=== PATIENT | male | born 1995 | race Caucasian/White ===

== ENCOUNTER 2018-01-01 11:37 | Emergency (ER) | payer OTHER, SELFPAY ==
[2018-01-01 11:53] VITALS: BP 104/74; PULSE 90; RESP 13; TEMP 36.6; O2SAT 99
--- NOTE | 2018-01-01 12:09 | ED.BACK ---
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 He felt pain when he bent over, which briefly radiated into his legs. He states the pain was so severe that time he was unable to walk and he had to be helped to get to another local ED where he was seen. He states that he got an injection and some medications and when he left he could walk slowly. He was prescribed Mobic, and he believes a muscle relaxant and [place]. He states that today, he still has pain and reduced range of motion, but is able to walk. He denies any radiation of the pain, which centers in his low back and more on the right side. He denies any weakness or paresthesia in the extremities. He denies any new fever. He denies any bowel or bladder changes or any other new complaints. He states that he mainly comes in for reassurance because he was not examined. 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 He lifts frequently. Review of Systems <Miladis Cash PA-C - Last Filed: 01/01/18 19:04> Review of Systems All systems reviewed & are unremarkable except as noted in HPI and below Exam <Miladis Cash PA-C - Last Filed: 01/01/18 19:04> Narrative Exam Narrative: GENERAL APPEARANCE: Patient sitting comfortably, in no distress, sits with weight shifted to left. PULMONARY: Lungs clear to auscultation bilaterally CV: Regular rhythm regular without murmur, normal S1 and S2, no S3 or S4 MUSCULOSKELETAL: Minimal point tenderness over the lumbar spine and paraspinal musculature, more tender over the right mid to inferior lumbar musculature at the MSL and at the SI joint. He is able to flex the spine to about 45? and fully extend but with some tenderness. He has reduced rotation and lateral bend secondary to tenderness. Lower extremity strength 5/5 bilateral hip flexors, knee extensors, foot plantar flexion. Negative modified straight leg raise NEUROLOGIC: Bilateral patellar and Achilles DTRs 2+. Lower extremity sensation grossly intact Initial Vital Signs Initial Vital Signs: Vital Signs Temperature 97.8 F 01/01/18 11:53 Pulse Rate 90 01/01/18 11:53 Respiratory Rate 13 01/01/18 11:53 Blood Pressure 104/74 01/01/18 11:53 Pulse Oximetry 99 01/01/18 11:53 <Arya Mitchell MD - Last Filed: 02/03/18 06:44> Initial Vital Signs Initial Vital Signs: Vital Signs Temperature 97.8 F 01/01/18 11:53 Pulse Rate 90 01/01/18 11:53 Respiratory Rate 13 01/01/18 11:53 Blood Pressure 104/74 01/01/18 11:53 Pulse Oximetry 99 01/01/18 11:53 Course <Miladis Cash PA-C - Last Filed: 01/01/18 19:04> Vital Signs - 8 hr 01/01/18 11:53 Temperature 97.8 F Pulse Rate 90 Respiratory Rate 13 Blood Pressure 104/74 Pulse Oximetry 99 <Arya Mitchell MD - Last Filed: 02/03/18 06:44> Vital Signs - 8 hr 01/01/18 11:53 Temperature 97.8 F Pulse Rate 90 Respiratory Rate 13 Blood Pressure 104/74 Pulse Oximetry 99 Discharge Plan Departure Patient Disposition: Home, Self-Care Clinical Impression: Strain of lumbar region, Sacroiliac (ligament) sprain Discharge Date/Time: 01/01/18 12:51 Interventions: ED Discharge Assessment Last Done: 01/01/18 12:50 Instructions: DI for Low Back Pain Activity Restrictions/Additional Instructions: Return as we talked about if you have new or acutely worsening symptoms. Otherwise, continue the medicines you have been prescribed. Try alternating ice and heat. You may also want to try [id number] topical rubs or lidocaine patches in addition to what you have been prescribed. Gentle walking is okay, but avoid twisting, lifting, and bending. Follow up with your PCP next week when you are off of work to assess progress and see whether further treatment is needed Referrals: Lu Forman MD [Non-Staff] - <Arya Mitchell MD - Last Filed: 02/03/18 06:44> Sign Out Provider Sign Out Attestation: The PA/WAREHOUSE SELECTOR functioned independently for the care of this pt, I was available, but not asked to participate in care. I am unable to determine appropriateness of management without personally examining the pt.
--- NOTE | 2018-01-01 12:49 | PC.NURSE ---
pt seen at [facility] yesterday, treated with im toradol and dexamethasone po, pt has prescriptions but not filled. pt reports, condition same as yesterday. denies bladder or bowel issue, denies paresthesia lower legs, able to ambulate slow but steady.
== END 2018-01-01 12:51 | disposition home or self-care (01) ==
PROVIDERS: Emergency Provider Internal Medicine; Family Provider Family Medicine; PCP Family Medicine
DX: S39.012A Strain of muscle, fascia and tendon of lower back, initial encounter (principal); S33.6XXA Sprain of sacroiliac joint, initial encounter
CPT/HCPCS: 99282